=== PATIENT | male | born 1990 | race Caucasian/White ===

== ENCOUNTER 2017-01-06 15:44 | Emergency (ER) | payer BC ==
[~2017-01-06] VITALS: Ht 193 cm; Wt 99.8 kg
[2017-01-06] MEDS ORDERED: IBUPROFEN 800 MG TABLET PO ONE (16:15)
[2017-01-06] MEDS ORDERED: IBUPROFEN 800 MG TABLET ONE (16:29)
--- NOTE | 2017-01-06 16:30 | NUR ---
Radiologist present to shoot XRAY of right shoulder per orders. Pt is doing well at this time. Monitoring V/S. Currently stable.
--- NOTE | 2017-01-06 16:44 | NUR ---
Contacted [facility] Duron per Dr. Mcnamara for report of confirmed right humerus fx. Orders given and will be exectued.
[2017-01-06] MEDS ORDERED: HYDROCODONE/APAP 10-325 MG TABLET PO ONE (17:00)
--- NOTE | 2017-01-06 17:03 | NUR ---
Pain med given as charted. Will start to application of right shoulder splint in about 20' to give medication time to get into pt's system. Natalie and Marli (girlfriend's mother) present at bedside.
[2017-01-06] MEDS ORDERED: HYDROCODONE/APAP 10-325 MG TABLET ONE (17:09)
== END 2017-01-06 18:04 | disposition home or self-care (01) ==
LOC: ER 15:44
DX: S42.301A Unspecified fracture of shaft of humerus, right arm, initial encounter for closed fracture (principal); W50.0XXA Accidental hit or strike by another person, initial encounter; Y93.64 Activity, baseball; Y92.9 Unspecified place or not applicable; Y99.9 Unspecified external cause status
CPT/HCPCS: 29105; 73030; 99284; A4663